=== PATIENT | male | born 1955 | race Asian ===

== ENCOUNTER 2018-04-14 10:21 | Outpatient (CLI) | payer OTHER ==
[2018-04-14 11:07] LABS: PLATELET COUNT 182 K/uL (142-355)
[2018-04-14 11:21] LABS: POTASSIUM 3.6 mmol/L (3.6-5.2)
== END 2018-04-14 23:59 | disposition home or self-care (01) ==
LOC: LABW 10:21
PROVIDERS: Internal Medicine
DX: E11.9 Type 2 diabetes mellitus without complications (principal); E29.1 Testicular hypofunction
CPT/HCPCS: 36415; 80053; 80061; 81000; 82043; 82570; 83036; 84439; 84443; 85027

== ENCOUNTER 2018-08-19 13:40 | Outpatient (CLI) | payer OTHER | END 2018-08-19 23:08 | disposition home or self-care (01) | LOC: LAB 13:40 | DX: Z00.00 Encounter for general adult medical examination without abnormal findings (principal); E11.9 Type 2 diabetes mellitus without complications; Z12.5 Encounter for screening for malignant neoplasm of prostate | CPT/HCPCS: 82043; 82570; 83036; 84439; 84443 ==

== ENCOUNTER 2018-08-24 16:07 | Outpatient (CLI) | payer OTHER | END 2018-08-24 19:50 | disposition home or self-care (01) | LOC: LAB 16:07 | DX: Z12.11 Encounter for screening for malignant neoplasm of colon (principal) | CPT/HCPCS: 82272 ==

== ENCOUNTER 2018-08-25 10:16 | Outpatient (CLI) | payer OTHER | END 2018-08-25 20:13 | disposition home or self-care (01) | LOC: LAB 10:16 | DX: Z12.11 Encounter for screening for malignant neoplasm of colon (principal) | CPT/HCPCS: 82272 ==

== ENCOUNTER 2018-08-26 07:47 | Outpatient (CLI) | payer OTHER | END 2018-08-26 19:49 | disposition home or self-care (01) | LOC: LAB 07:47 | DX: Z12.11 Encounter for screening for malignant neoplasm of colon (principal) | CPT/HCPCS: 82272 ==

== ENCOUNTER 2020-03-26 13:47 | Outpatient (CLI) | payer OTHER | END 2020-03-26 20:54 | disposition home or self-care (01) | LOC: RAD 13:47 | PROVIDERS: ATTEND Internal Medicine | DX: Z01.818 Encounter for other preprocedural examination (principal) ==

== ENCOUNTER 2021-04-02 10:01 | Outpatient (CLI) | payer OTHER | END 2021-04-02 19:28 | disposition home or self-care (01) | LOC: LABW 10:01 | PROVIDERS: ATTEND Internal Medicine | DX: D45 Polycythemia vera (principal) | CPT/HCPCS: 36415; 85014; 85018 ==